=== PATIENT | female | born 1985 | race Hispanic/Latino ===

== ENCOUNTER 2018-04-01 09:30 | Emergency (ER) | payer SELFPAY ==
[~2018-04-01] VITALS: Ht 167.6 cm; Wt 75.0 kg
[~2018-04-01 09:30] MED LIST: AMOX/K CLAV500 MG PO; AMOXICILLIN/CL875 MG PO; AMOXICILLIN500 MG PO; AUGMENTIN875TAB OR; AUGMENTIN875TAB PO; CIPROFLOXACN500 MG PO; CLARITIN10 M1 PO; CONCEPT DHA PO; DEPO-MEDROL80 MG/ML IM; DIFLUCAN150 MG PO; DUET DH1 PO; FIORICET; FIORICET PO; FLEXERIL PO; FLONASE NASAL50 MCG; INTEGRA F OR; INTEGRA F PO; KETOROLAC60 MG/2 ML IJ; MEDDOSEPAK OR; MEDDOSEPAK PO; MUCINEX600 MG PO; MULTI VIT PO; NAPROSYN375 MG PO; NASONEX50 MCG/ACT; NUVARING VA; PHENERGAN SUP12.5 MG RE; PREDNISONE10 MG PO; PROBIOTIC OR; REGLAN10 MG PO; RHINOCORT; ROCEPHIN 1 GM1 GM IM; SINGULAIR5 MG PO; TESSALON PER100 MG PO; TRIAMCINOLON0.11 EX; TYLENO1 PO; ULTRAM50 M1 PO; VISTARIL25 MG PO; ZOFRAN ODT4 MG PO
[2018-04-01] MEDS ORDERED: MULTI VIT PO (10:12)
[2018-04-01 10:57] LABS: INFLUENZA A NONE DETECTED (NONE DETECT); INFLUENZA B NONE DETECTED (NONE DETECT)
[2018-04-01] MEDS ORDERED: BACTRIM DS1 TAB PO (11:10)
[2018-04-01] MEDS ORDERED: FIORICET PO (11:10)
[2018-04-01] MEDS ORDERED: ZOFRAN ODT4 MG PO (11:10)
[2018-04-01 11:23] VITALS: BP 125/73
== END 2018-04-01 11:23 | disposition home or self-care (01) | DRG 866 ==
LOC: ED 09:30
PROVIDERS: Emergency Medicine
DX: B34.9 Viral infection, unspecified (principal); R51 Headache

== ENCOUNTER 2018-11-01 09:09 | Emergency (ER) | payer SELFPAY ==
[~2018-11-01] VITALS: Ht 167.6 cm; Wt 81.0 kg
[~2018-11-01 09:09] MED LIST changes: +BACTRIM DS1 TAB PO
[2018-11-01 09:48] LABS: URINE BLOOD DIPSTICK MODERATE (NEGATIVE); URINE COLOR YELLOW; URINE GLUCOSE - DIPSTICK NEGATIVE (NEGATIVE); URINE KETONE >=80 mg/dL (NEGATIVE); URINE NITRITE - DIPSTICK NEGATIVE (Negative); URINE PH 5.5 (4.5-8.0); URINE PROTEIN - DIPSTICK NEGATIVE (NEG-TRACE); URINE SPECIFIC GRAVITY >=1.030; URINE UROBILINOGEN - DIPSTICK 0.2 E.U./dL (0.2)
[2018-11-01 09:53] LABS: URINE BILIRUBIN - DIPSTICK SMALL (NEGATIVE); URINE LEUK ESTERASE SMALL (NEGATIVE)
[2018-11-01 09:57] LABS: URINE BACTERIA FEW hpf; URINE EPITHELIAL CELLS FEW EPI/hpf (0-FEW)
[2018-11-01 10:01] LABS: IMMATURE GRANULOCYTES 0.3 % (0.0-5.0); MEAN CELL VOLUME 77.8 fL CALC (80.0-100.0); MEAN CORPUSCULAR HGB 24.7 pG CALC (26.0-32.0); MEAN CORPUSCULAR HGB CONC 31.8 g/L CALC (32.0-36.0); NEUT# 4.98 thou/uL (2.00-7.15); RED BLOOD COUNT 4.9 mill/uL (4.20-5.60); RED CELL DISTRI WIDTH 16.1 % (11.5-15.5)
[2018-11-01 10:10] LABS: HEMATOCRIT 38.1 % (37.0-47.0); HEMOGLOBIN 12.1 g/dl (12.0-16.0)
[2018-11-01 10:23] LABS: AMYLASE 76 u/l (30-110); ANION GAP 16 (6-22 (CALC)); BILIRUBIN, TOTAL 0.6 mg/dL (0.0-1.4); BUN 7 mg/dL (7-17); BUN/CREATININE RATIO 14 (12-20 (CALC)); CARBON DIOXIDE 22 mmol/l (22-30); CHLORIDE 103 mmol/l (95-108); CREATININE 0.5 mg/dL (0.5-1.0); GFR > 60 ML/MIN (>=60 (CALC)); GFR FOR AFR.AMER. > 60 ML/MIN (>=60 (CALC)); LIPASE 36 u/l (23-300); POTASSIUM 4.3 mmol/l (3.5-5.1); SGOT/AST 19 u/l (14-36); SODIUM 136 mmol/l (137-146); TOTAL PROTEIN 7.8 g/dL (6.3-8.2)
[2018-11-01 10:29] LABS: ALKALINE PHOSPHATASE 79 u/l (38-126)
[2018-11-01] MEDS ORDERED: CEPHALEXIN500 M1 PO (11:11)
[2018-11-01] MEDS ORDERED: ZOFRAN ODT4 MG PO (11:11)
[2018-11-01 11:20] VITALS: BP 118/76
== END 2018-11-01 11:25 | disposition home or self-care (01) | DRG 833 ==
LOC: ED 09:09
PROVIDERS: Emergency Medicine
DX: O23.91 Unspecified genitourinary tract infection in pregnancy, first trimester (principal); R51 Headache; R10.13 Epigastric pain; R11.2 Nausea with vomiting, unspecified; Z3A.01 Less than 8 weeks gestation of pregnancy

== ENCOUNTER 2020-05-27 20:40 | Emergency (ER) | payer OTHER ==
[~2020-05-27] VITALS: Ht 167.6 cm; Wt 77.0 kg
[~2020-05-27 20:40] MED LIST changes: +CEPHALEXIN500 M1 PO
[2020-05-27] MEDS ORDERED: GENTAMICIN0.3 % OD ×2 (22:26)
[2020-05-27 22:40] VITALS: BP 125/82
== END 2020-05-27 22:45 | disposition home or self-care (01) ==
LOC: ED 20:40
DX: H10.9 Unspecified conjunctivitis (principal)

== ENCOUNTER 2020-07-23 09:57 | Emergency (ER) | payer OTHER ==
[~2020-07-23] VITALS: Ht 167.6 cm; Wt 81.0 kg
[~2020-07-23 09:57] MED LIST changes: +GENTAMICIN0.3 % OD
[2020-07-23] MEDS ORDERED: LEVAQUIN750 MG PO (10:31)
[2020-07-23] MEDS ORDERED: HYDROCO/APAP1 TA9 PO (10:31)
[2020-07-23 11:10] VITALS: BP 127/83
== END 2020-07-23 11:02 | disposition home or self-care (01) ==
LOC: ED 09:57
DX: J32.9 Chronic sinusitis, unspecified (principal)

== ENCOUNTER 2021-04-10 11:30 | Emergency (ER) | payer OTHER ==
[~2021-04-10] VITALS: Ht 167.6 cm; Wt 81.8 kg
[~2021-04-10 11:30] MED LIST changes: +HYDROCO/APAP1 TA9 PO; +LEVAQUIN750 MG PO
[2021-04-10 12:32] LABS: HEMATOCRIT 40.4 % (37.0-47.0); HEMOGLOBIN 12.8 g/dl (12.0-16.0); IMMATURE GRANULOCYTES 0.4 % (0.0-5.0); MEAN CELL VOLUME 82.3 fL CALC (80.0-100.0); MEAN CORPUSCULAR HGB 26.1 pG CALC (26.0-32.0); MEAN CORPUSCULAR HGB CONC 31.7 g/dL CAL (32.0-36.0); NEUT# 8.88 thou/uL (2.00-7.15); RED BLOOD COUNT 4.91 mill/uL (4.20-5.60); RED CELL DISTRI WIDTH 12.9 % (11.5-15.5)
[2021-04-10 12:53] LABS: ALBUMIN 4.1 g/dL (3.2-5.0); ALKALINE PHOSPHATASE 120 u/l (38-126); BUN 9 mg/dL (7-17); BUN/CREATININE RATIO 18 (12-20 (CALC)); CARBON DIOXIDE 24 mmol/l (22-30); CHLORIDE 102 mmol/l (95-108); CREATININE 0.5 mg/dL (0.5-1.0); GFR > 60 ML/MIN (>=60 (CALC)); GFR FOR AFR.AMER. > 60 ML/MIN (>=60 (CALC)); POTASSIUM 4.1 mmol/l (3.5-5.1); SGOT/AST 24 u/l (14-36); TOTAL PROTEIN 8.2 g/dL (6.3-8.2)
[2021-04-10 13:04] LABS: ANION GAP 11 (6-22 (CALC)); BILIRUBIN, TOTAL 0.6 mg/dL (0.0-1.4); SODIUM 133 mmol/l (137-146)
[2021-04-10 14:30] VITALS: BP 112/81
== END 2021-04-10 14:30 | disposition home or self-care (01) ==
LOC: ED 11:30
PROVIDERS: Family Medicine
DX: R51.9 Headache, unspecified (principal)

== ENCOUNTER 2021-09-10 13:48 | Emergency (ER) | payer OTHER ==
[~2021-09-10] VITALS: Ht 167.6 cm; Wt 83.2 kg
[2021-09-10 14:20] LABS: HEMATOCRIT 39.4 % (37.0-47.0); HEMOGLOBIN 12.3 g/dl (12.0-16.0); IMMATURE GRANULOCYTES 0.1 % (0.0-5.0); MEAN CELL VOLUME 76.5 fL CALC (80.0-100.0); MEAN CORPUSCULAR HGB 23.9 pG CALC (26.0-32.0); MEAN CORPUSCULAR HGB CONC 31.2 g/dL CAL (32.0-36.0); NEUT# 6.42 thou/uL (2.00-7.15); RED BLOOD COUNT 5.15 mill/uL (4.20-5.60); RED CELL DISTRI WIDTH 14.6 % (11.5-15.5)
[2021-09-10 14:32] LABS: URINE BILIRUBIN - DIPSTICK NEGATIVE (NEGATIVE); URINE BLOOD DIPSTICK SMALL (NEGATIVE); URINE COLOR YELLOW; URINE GLUCOSE - DIPSTICK NEGATIVE (NEGATIVE); URINE KETONE NEGATIVE (NEGATIVE); URINE LEUK ESTERASE NEGATIVE (NEGATIVE); URINE PH 7.5 (4.5-8.0); URINE PROTEIN - DIPSTICK NEGATIVE (NEG-TRACE); URINE SPECIFIC GRAVITY 1.025; URINE UROBILINOGEN - DIPSTICK 0.2 E.U./dL (0.2)
[2021-09-10 14:32] LABS: ALBUMIN 4.4 g/dL (3.2-5.0); ALKALINE PHOSPHATASE 133 u/l (38-126); AMYLASE 110 u/l (30-110); ANION GAP 13 (6-22 (CALC)); BILIRUBIN, TOTAL 0.7 mg/dL (0.0-1.4); BUN 8 mg/dL (7-17); BUN/CREATININE RATIO 16 (12-20 (CALC)); CARBON DIOXIDE 22 mmol/l (22-30); CHLORIDE 105 mmol/l (95-108); CREATININE 0.5 mg/dL (0.5-1.0); GFR > 60 ML/MIN (>=60 (CALC)); GFR FOR AFR.AMER. > 60 ML/MIN (>=60 (CALC)); POTASSIUM 3.7 mmol/l (3.5-5.1); SGOT/AST 22 u/l (14-36); SODIUM 136 mmol/l (137-146); TOTAL PROTEIN 8.7 g/dL (6.3-8.2)
[2021-09-10 14:35] LABS: URINE NITRITE - DIPSTICK NEGATIVE (Negative)
[2021-09-10 14:36] LABS: URINE SQUAMOUS EPITHELIAL CELL FEW EPI/hpf (0-FEW); URINE WBC 0-2 WBC/hpf (0-5)
[2021-09-10] MEDS ORDERED: ZOFRAN4 MG/TAB PO (15:08)
[2021-09-10] MEDS ORDERED: FIORICET PO (15:08)
[2021-09-10 15:28] VITALS: BP 135/76
== END 2021-09-10 15:45 | disposition home or self-care (01) ==
LOC: ED 13:48
DX: R11.2 Nausea with vomiting, unspecified (principal); R51.9 Headache, unspecified